=== PATIENT | male | born 1985 | race African-American/Black ===

== ENCOUNTER 2018-11-26 10:36 | Emergency (ER) | payer OTHER ==
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
[2018-11-26] MEDS ORDERED: ACETAMINOPHEN 325 MG TABLET PO ONE (11:55)
[2018-11-26] MEDS ORDERED: LIDOCAINE 4%/TETRACAINE 0.5%/EPI 0.18% 5 ML TOPICAL SOLN TOP ONE (13:59)
[2018-11-26] MEDS ORDERED: DIPH/PERTUSS(ACELL)/TETANUS VAC/PF 0.5 ML SYR (>=10YO) IM ONE (13:59)
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
[2018-11-26 15:19] VITALS: BP 126/85
== END 2018-11-26 15:23 | disposition home or self-care (01) ==
LOC: ER 10:36
PROC: 0HQ0XZZ Repair Scalp Skin, External Approach (ICD-10-PCS; principal; 2018-11-26)
DX: S01.01XA Laceration without foreign body of scalp, initial encounter (principal); S60.211A Contusion of right wrist, initial encounter; S09.90XA Unspecified injury of head, initial encounter; M25.531 Pain in right wrist; Y04.0XXA Assault by unarmed brawl or fight, initial encounter; F17.200 Nicotine dependence, unspecified, uncomplicated
CPT/HCPCS: 90715; 12001; J3490; 90471; 99283

== ENCOUNTER 2018-12-07 09:11 | Emergency (ER) | payer OTHER ==
[2018-12-07 09:28] VITALS: BP 154/89
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
== END 2018-12-07 10:21 | disposition home or self-care (01) ==
LOC: ER 09:11
DX: S01.01XD Laceration without foreign body of scalp, subsequent encounter (principal); W22.8XXD Striking against or struck by other objects, subsequent encounter; F17.200 Nicotine dependence, unspecified, uncomplicated; R03.0 Elevated blood-pressure reading, without diagnosis of hypertension